=== PATIENT | female | born 1985 | race Caucasian/White ===

== ENCOUNTER 2016-12-10 07:16 | Inpatient (IN) | payer OTHER ==
[~2016-12-10] VITALS: Ht 165.1 cm; Wt 81.2 kg
--- NOTE | ~2016-12-10 | HP ---
ADMIT: 12/10/2016 RM/LOC: W.05 [facility] MR#: [id number] [address] [address] VERA VINSON [address] [place] [address] Pre-OP History and Physical SEX: F AGE: 31 : 1985 Corrected: 12/10/2016 1118 yordan DATE OF SERVICE: 12/10/2016 PREOPERATIVE DIAGNOSIS: Idiopathic thrombocytopenic purpura. PLAN: Laparoscopic splenectomy. HISTORY OF PRESENT ILLNESS: This patient is a 31-year-old female, who has been seen and treated by Dr. Tiff Valle, and at this time the plan is to proceed with a splenectomy secondary to her constant need for steroids for her platelets and her affliction with ITP. I have discussed this procedure at length with her and family of laparoscopic possible open splenectomy what it entails, the risks, the benefits, possible complications, and alternatives. They understand and wish to proceed. PAST MEDICAL HISTORY: Otherwise, essentially none other than that and kind of some issues with the steroids. She has had some reflux because of them. MEDICATIONS: She is routinely on; 1. Tylenol for pain. 2. Iron. 3. Prednisone 40 mg every morning, 20 in the evening. 4. Pepcid 10 mg daily. 5. Pantoprazole 40 mg every morning. ALLERGIES: NO KNOWN DRUG ALLERGIES. PAST SURGICAL HISTORY: She has had no other surgeries. She has had one vaginal delivery. REVIEW OF SYSTEMS: Currently is otherwise negative. ADMIT: 12/10/2016 RM/LOC: W.05 [facility] MR#: [id number] [address] [address] VERA VINSON [address] [place], [place] [address] Pre-OP History and Physical SEX: F AGE: 31 : 1985 PHYSICAL EXAMINATION: GENERAL: She is alert. She is oriented. She is in no significant distress. HEENT: Her sclerae are nonicteric. Extraocular muscles are intact. CHEST: Clear anteriorly. HEART: Regular rate and rhythm. ABDOMEN: Soft. Positive bowel sounds. No obvious organomegaly. No mass. EXTREMITIES: Without clubbing, cyanosis, or edema. ASSESSMENT AND PLAN: Plan for laparoscopic possible open splenectomy. Rajiv Rojas MD/ savi JOB #: [id number] CC: Rajiv Rojas, Attending Physician NO FAMILY PHYSICIAN, Family Physician Corrected: 12/10/2016 1118 yordan
[~2016-12-10 07:16] MED LIST: COLACE-DPS100 MG PO; IRON325 M1 PO; MOTRIN-DPS800 MG PO; PRENATAL VIT1 TAB PO; TUMS DPS500 MG PO; TYLENOL DPS325 MG PO
[2016-12-13] MEDS ORDERED: PROTONIX40 MG PO (14:21)
[2016-12-13] MEDS ORDERED: FAMOTIDINE10 MG PO (14:21)
[2016-12-13] MEDS ORDERED: PERCOCET 5-3251 EACH PO (14:24)
[2016-12-13] MEDS ORDERED: DELTASONE DPS20 MG PO (14:24)
--- NOTE | 2016-12-24 13:26 | OR ---
ADMIT: 12/10/2016 RM/LOC: 629 [facility] MR#: [id number] [address] [address] VERA VINSON [address] [place] [address] Operative/Delivery Room Report SEX: F AGE: 31 : 1985 SURGERY DATE: 12/10/2016 SURGEON: Rajiv Rojas MD PREOPERATIVE DIAGNOSIS: Idiopathic thrombocytopenic purpura, need for splenectomy. POSTOPERATIVE DIAGNOSIS: Idiopathic thrombocytopenic purpura, need for splenectomy. PROCEDURE: Laparoscopic splenectomy. BILLING REPRESENTATIVE: Lc Kendrick MD. ANESTHESIA: General endotracheal tube anesthesia. ESTIMATED BLOOD LOSS: 50 mL or less. SPECIMENS: Spleen to Pathology. INDICATION FOR PROCEDURE: Please see H and P. PROCEDURE IN DETAIL: After the risks, benefits, possible complications, and the alternatives have been explained, and informed consent had been obtained, the patient was taken back to the operating room, underwent general endotracheal tube anesthesia, and the surgical field was prepped and draped in a sterile manner. I first started making an infraumbilical incision, the Veress needle was inserted. The abdomen was insufflated with CO2. Once there was adequate insufflation, a 5 mm port was placed. I then placed another midline 5 mm port, 12-mm left-sided port and ended up ultimately placing 2 other 5-mm ports on the right side. I started off getting in the lesser sac. I have taken some of the short gastrics coming over to the spleen to get into that space. You could see underneath the main artery and it divided into two and kind had a main inferior and the pole but it was fairly entwined there at the superior aspect of the pancreas. I was hoping I was going to be able to take it one shot but felt this dissection was going to be harder than going ahead and freeing up the ligament from the splenic flexure of the colon and then working that up taking some of the vessels, small ones with the Harmonic Scalpel. Going up the spleen, the inferior artery was then taken with the load of the HOWARD stapler. I then kept working up, like I said, ligaments laterally and inferiorly until we had the upper pole artery dissected out nicely as well and then came across it with a load of the Endo HOWARD 2.5 stapler. Freed up the rest of the superior pole ligament. I had taken the rest of the short gastrics on our way up using the Harmonic scalpel and then ultimately had the spleen completely freed up as seen in the second picture. Picture 1 with our staple load across the splenic artery there. Placed in a large EndoCatch bag as seen in picture #3 and then I enlarged the infraumbilical incision site up and brought the bag out there. I had placed a 15 mm port there and I was able to actually get it out through my incision ADMIT: 12/10/2016 RM/LOC: 629 [facility] MR#: [id number] [address] [place] [id number] VERA VINSON [address] [place] [address] Operative/Delivery Room Report SEX: F AGE: 31 : 1985 completely. Did not have to burst the spleen up at all. Then closed that lower midline incision with a running #1 PDS. Re-insufflated the abdomen. We inspected and irrigated, everything appeared dry. Did not see any bleeding or oozing in the left upper quadrant of the patient. Removed the liver retractor that was used to hold the stomach out of the way and like I said, inspected everything, irrigated, felt everything was dry. I injected 0.5% Marcaine in the incision site for pain control. Closed the fascia of the left upper quadrant port, large port site with an 0-Polysorb suture using the suture passer. Rest of the ports were all removed and skin closed with balwinder. Tolerated procedure well, was extubated and taken to recovery room in stable and satisfactory condition. Rajiv Rojas MD/ savi JOB #: [id number] CC: Rajiv Rojas, Attending Physician FAMILY PHYSICIAN, Family Physician Tiff Valle MD
--- NOTE | 2017-01-15 15:54 | DS ---
ADMIT: 12/10/2016 RM/LOC: 629 [facility] MR#: [id number] [facility]#: [id number] [address] [address] VERA VINSON [address] [place] [address] Discharge Summary SEX: F AGE: 31 : 1985 ADMISSION DATE: 12/10/2016 DISCHARGE DATE: 12/12/2016 ADMITTING DIAGNOSIS: Idiopathic thrombocytopenic purpura, need for splenectomy. DISMISSAL DIAGNOSES: 1. Idiopathic thrombocytopenic purpura, need for splenectomy. 2. Gastroesophageal reflux disease. PROCEDURES: Laparoscopic splenectomy. HOSPITAL COURSE: The patient was a short-stay observation admit with routine med/surg orders. After surgery, the patient transferred to the floor without any complications. She was started on oral pain medications and a diet as tolerated. Overall, the patient recovered well while in the hospital. Her vitals remained stable, her lab work normalized and her pain was controlled. She did however not tolerate the hydrocodone so this was switched to Percocet. She had normal return of her bowel function and was ambulating well. She was deemed stable to discharge on 12/12/2016. DISCHARGE INSTRUCTIONS: 1. Okay to remove dressing on Friday or Friday. 2. Okay to shower. 3. Follow up with Dr. Valle on December 18 at 1000 hours. 4. Follow up with Dr. Rojas on December 19 at 1315 hours. DISCHARGE MEDICATIONS: 1. Pantoprazole 40 mg every morning. 2. Colace 100 mg b.i.d. 3. Famotidine 10 mg daily p.r.n. 4. Tums 500 mg p.r.n. 5. Ferrous sulfate 325 mg every morning and evening. 6. Tylenol 625 mg daily p.r.n. 7. Deltasone 20 mg, take for 4 days b.i.d. 8. Deltasone 20 mg daily. 9. Percocet 5/325, 1-2 tabs q.6 hours p.r.n. MARIA Hays / Rajiv Rojas MD / gloriag JOB #: [id number] CC: Rajiv Rojas MD, Attending Physician FAMILY PHYSICIAN, Family Physician
== END 2016-12-12 13:15 | disposition home or self-care (01) | DRG 801 ==
LOC: WOR 07:16 → 6PED 07:16 → WOR 07:16 → 6PED 12:26
PROVIDERS: ADMIT Surgery
PROC: 07TP4ZZ Resection of Spleen, Percutaneous Endoscopic Approach (ICD-10-PCS; principal; 2016-12-10)
DX: D69.3 Immune thrombocytopenic purpura (principal); K21.9 Gastro-esophageal reflux disease without esophagitis; Z79.52 Long term (current) use of systemic steroids